=== PATIENT | female | born 1985 | race Caucasian/White ===

== ENCOUNTER 2023-01-02 15:28 | Inpatient (IN) | payer BC ==
[~2023-01-02] VITALS: Ht 162.6 cm; Wt 96.8 kg
[2023-01-06] VITALS (55 sets, daily range): BP systolic 97–139; BP diastolic 54–92; PULSE 67–104; TEMP 97.6–99
--- NOTE | 2023-01-06 06:36 | NUR ---
PT AMBULATORY TO LR4 WITH SPOUSE. CHANGED INTO CLEAN GOWN. FHR MONITOR/TOCO APPLIED. PT DENIES ANY VAGINAL BLEEDING, REGULAR CONTRACTIONS, DECREASED MOVEMENT OR LEAKING OF FLUID. VITAL SIGNS WNL. AFEBRILE. PLAN OF CARE DISCUSSED. PT VERBALIZES UNDERSTANDING. CALL LIGHT WITHIN REACH. PT ORIENTED TO ROOM.
[2023-01-06] MEDS ORDERED: ASPIRIN 81M81 MG/TA2 PO (06:58)
[2023-01-06] MEDS ORDERED: PRENATAL TABLET PO (06:58)
[2023-01-06 07:37] LABS: HEMOGLOBIN 11.8 g/dl (12.5-16.0); MEAN CELL VOLUME 95 fl (80.0-100.0); MEAN CORPUSCULAR HEMOGLOBIN 33 pg (27-31); MEAN CORPUSCULAR HGB CONC 34 g/dl (33.0-37.0); MEAN PLATELET VOLUME 11.8 fl (7.4-10.4); PLATELET COUNT 153 K/mm3 (130-400); RED BLOOD COUNT 3.61 M/mm3 (4.10-5.30); REDCELL DISTRIBUTION WIDTH-CV 13.8 % (11.5-14.5)
[2023-01-06 07:41] LABS: HEMATOCRIT 34.4 % (37.0-47.0)
[2023-01-06 08:31] LABS: EOSINOPHIL 1 % (0-4); LYMPHOCYTE 24 % (20.0-51.0); METAMYELOCYTE 1 % (0-0); NEUTROPHILS 67 % (42.0-75.2)
[2023-01-06 08:32] LABS: PLATELET ESTIMATE NORMAL (NORMAL); POLYCHROMASIA 1+
--- NOTE | 2023-01-06 12:18 | NUR ---
IUPC PLACED BY DR NIELSON
--- NOTE | 2023-01-06 14:50 | NUR ---
THIS RN GIVES PT LR BOLUS FOR MINIMAL AMOUNT OF ACCELERATIONS ON FHR MONITOR.
--- NOTE | 2023-01-06 16:35 | NUR ---
DR NIELSON REQUESTS PITOCIN BE TURNED UP TO 22MU FROM 20MU.
--- NOTE | 2023-01-06 19:00 | NUR ---
Pt reports rectal pressure, turned to back for SVE, as noted. mod amount BM expressed with Vag exam, pericaare perforned. Pt to Pallavi position. Anethesia places new Epidural dosing cartridge.
--- NOTE | 2023-01-06 19:35 | NUR ---
Pt relaxed, social, eating popsicle. States "a little shakey" denies increase in pressure.
--- NOTE | 2023-01-06 20:36 | NUR ---
FHR not tracing, into room to adj monitor. SVE as noted, to WL with peanut ball.
--- NOTE | 2023-01-06 22:00 | NUR ---
SVE complete. 2209 Sagastume catheter dc'd. 221 Dr Shirley notifed to come for delivery. NSY notified.
--- NOTE | 2023-01-06 22:18 | NUR ---
Pt states "i'm not really feeling the contractions very much" Pushing with instructions. 2224 Dr Langston into room, pt set up for delivery. IUPC dc'd by Dr Langston. 2232 FHT's 100's with pushing, not tracing well. Dr Langston continues in room. pushing well. 223 of female after reduction of nuchal cord X [address] Langston.
--- NOTE | 2023-01-06 22:39 | NUR ---
Placenta delivers spont and intact. Pitocin gtt to bolus rate. Bimanual massage by Dr Shirley with heavy lochia with clots. 224 Methergine 0.2mg To LAT for continued heavy flow with clots. 2243 Flow decreased. Fundus firm.Dr Shirley begins perineal repair. 2248 Perineal repair complete. fundal massage by Dr Nielsen yields moderate flow with clots 2252 Cytotech 600mcg per rectum by Dr Shirley. Straight cath by Dr Shirley yields small amount concentrated urine. Pericare performed ice pack to perineum. Bed together.
[2023-01-07] VITALS (9 sets, daily range): BP systolic 104–126; BP diastolic 56–81; PULSE 72–104; TEMP 97.5–98.9
--- NOTE | 2023-01-07 01:45 | NUR ---
Attempt to get up to bathroom, unable to move R leg off bed. Up to bathroom with assist of 'May Steady', unable to void at this time. Performs own pericare. Clean gown on and transferred to room via 'May Steady'. Oriented to room, monitor, plan of care.
[2023-01-07] MEDS ORDERED: IBU600 MG PO (08:23)
--- NOTE | 2023-01-07 10:23 | NUR ---
Initial visit; Parents thanked [employer] Developer for offering congratulations and God's blessings for the of their daughter. H[employer] Java Developer thanked family for choosing [facility].
[2023-01-08 07:31] VITALS: BP 110/64; PULSE 72; TEMP 98.2
== END 2023-01-08 11:35 | disposition home or self-care (01) | DRG 806 ==
LOC: OB 01-06 06:26 → LDR 01-06 06:26 → OB 01-06 15:26
PROVIDERS: ADMIT Obstetrics & Gynecology
PROC: 10E0XZZ Delivery of Products of Conception, External Approach (ICD-10-PCS; principal; 2023-01-06)
PROC: 0HQ9XZZ Repair Perineum Skin, External Approach (ICD-10-PCS; 2023-01-06)
PROC: 10907ZC Drainage of Amniotic Fluid, Therapeutic from Products of Conception, Via Natural or Artificial Opening (ICD-10-PCS; 2023-01-06)
PROC: 3E033VJ Introduction of Other Hormone into Peripheral Vein, Percutaneous Approach (ICD-10-PCS; 2023-01-06)
DX: O48.0 Post-term pregnancy (principal); O72.1 Other immediate postpartum hemorrhage; Z37.0 Single live birth; O70.0 First degree perineal laceration during delivery; O99.02 Anemia complicating childbirth; D64.9 Anemia, unspecified; O69.1XX0 Labor and delivery complicated by cord around neck, with compression, not applicable or unspecified; Z3A.40 40 weeks gestation of pregnancy; Z86.16 Personal history of COVID-19
CPT/HCPCS: J2210; J2590; J7120